=== PATIENT | female | born 1970 | race Two or more races ===

== ENCOUNTER 2017-11-26 01:35 | Emergency (ER) | payer OTHER ==
[~2017-11-26] VITALS: Ht 162.6 cm; Wt 56.7 kg
[2017-11-26] MEDS ORDERED: MEDROL8 MG PO (04:34)
[2017-11-26] MEDS ORDERED: ZYRTEC10 MG PO (04:34)
[2017-11-26] MEDS ORDERED: ALBUTEROL2.5 MG/3 M IH (04:34)
== END 2017-11-26 04:37 | disposition home or self-care (01) ==
LOC: ER 01:35
DX: T78.49XA Other allergy, initial encounter (principal); R06.02 Shortness of breath

== ENCOUNTER → 2018-02-24 | Emergency (ER) | payer OTHER ==
[~2018-02-24] VITALS: Ht 165.1 cm; Wt 61.2 kg
[~2018-02-24] MED LIST: ALBUTEROL2.5 MG/3 M IH; MEDROL8 MG PO; MEDROLPACK PO; PERCOCET 5-3251 EACH PO; SKELAXIN800 MG PO; ZYRTEC10 MG PO
== END | disposition home or self-care (01) ==
LOC: ER 15:49
DX: M62.838 Other muscle spasm (principal); M43.6 Torticollis

== ENCOUNTER 2021-03-12 06:53 | Day surgery (SDC) | payer OTHER | END 2021-03-12 12:30 | disposition home or self-care (01) | LOC: AMB-ENDOS 06:53 | PROVIDERS: ATTEND Surgery | DX: K62.89 Other specified diseases of anus and rectum (principal); K64.8 Other hemorrhoids; Z12.11 Encounter for screening for malignant neoplasm of colon ==

== ENCOUNTER 2021-10-19 02:45 | Emergency (ER) | payer OTHER ==
[~2021-10-19] VITALS: Ht 152.4 cm; Wt 56.7 kg
[2021-10-19] MEDS ORDERED: DOLOGEN CAPLET1 EACH PO (05:01)
[2021-10-19] MEDS ORDERED: TUSNEL LIQUID178 ML PO (05:01)
[2021-10-19] MEDS ORDERED: ZITHROMAX500 MG PO (05:01)
[2021-10-19] MEDS ORDERED: MEDROLPACK PO (05:01)
== END 2021-10-19 05:06 | disposition home or self-care (01) ==
LOC: ER 02:45 → EDBD 02:48 → ER 05:06
DX: U07.1 COVID-19 (principal)

== ENCOUNTER 2021-10-23 20:12 | Emergency (ER) | payer OTHER ==
[~2021-10-23] VITALS: Ht 162.6 cm; Wt 56.7 kg
[~2021-10-23 20:12] MED LIST changes: +DOLOGEN CAPLET1 EACH PO; +TUSNEL LIQUID178 ML PO; +ZITHROMAX500 MG PO
[2021-10-23] MEDS ORDERED: MILLIPRED5 MG PO (20:25)
[2021-10-23] MEDS ORDERED: PROAIR HFA8.5 GM (20:26)
== END 2021-10-23 21:25 | disposition home or self-care (01) ==
LOC: ER 20:12
DX: R22.2 Localized swelling, mass and lump, trunk (principal)